=== PATIENT | female | born 1965 | race Caucasian/White ===

== ENCOUNTER 2022-02-27 23:27 | Emergency (ER) | payer SELFPAY ==
[2022-02-27 23:37] VITALS: BP 120/73; PULSE 74; RESP 18; TEMP 36.5; O2SAT 100; BMI 33.8
--- NOTE | 2022-02-27 23:50 | ED_ITS ---
HPI - General Adult General Time Seen by Provider: 23:50 Date Seen: 02/27/22 Chief complaint: Eye Problems Stated complaint: Rashes,swollen eyes Time Seen by Provider: 02/27/22 23:49 Source: patient Mode of arrival: ambulatory Limitations: no limitations History of Present Illness HPI narrative: Patient is a pleasant 56-year-old female who presents with her family. They declined an home health clinician. The son is interpreting. Had hives and a skin rash intermittently over the last few days. reports that it is most common when she is exposed to the cold air. The patient had the similar episode about 20 years ago and got better. She denies due to allergens, new detergents, new cosmetics. Does not take any medication and has not been on antibiotics. No tongue swelling or shortness of breath. No chest pain. No skin rashes other than mention, no abdominal pain Related Data Previous Rx's Medication Instructions Recorded prednisone 20 mg tablet 20 mg PO BID #10 tabs 02/27/22 Allergies Allergy/AdvReac Type Severity Reaction Status Date / Time No Known Drug Allergies Allergy Verified 02/27/22 23:35 Review of Systems Status of ROS: Reports: 6 or more systems reviewed and unremarkable except as noted in History and below PFSH [facility] Social History Smoking Status: Never smoker How often do you have a drink containing alcohol: never AUDIT-C Alcohol total score: 0 Non-prescribed substance use: denies use service: No Exam Narrative: Exam Narrative: Objective: Patient's O2 sat is excellent 100% on room air She has some mild upper and lower lid swelling on the left eye minimal on the right is a faint rash over her upper chest. Patient shows a picture of urticaria that was present earlier in the week. Mouth shows no swelling of the tongue or throat, she denies any breathing problem Const: Vital Signs, click to edit/add: Vital Signs - 24 hr 02/27/22 23:37 Temperature 97.7 F Pulse Rate [Right Pulse Oximeter] 74 Respiratory Rate 18 Blood Pressure [Ri ght Upper Arm] 120/73 Pulse Oximetry 100 Oxygen Delivery Me thod Room Air Course Vital Signs Vital signs: Initial Vital Signs Temperature 97.7 F 02/27/22 23:37 Temperature Source Oral 01/08/23 23:37 Pulse Rate 74 02/27/22 23:37 Respiratory Rate 18 02/27/22 23:37 Blood Pressure 120/73 02/27/22 23:37 Blood Pressure Mean 88 02/27/22 23:37 Blood Pressure Position Sitting 02/27/22 23:37 Pulse Oximetry 100 02/27/22 23:37 Oxygen Delivery Method 02/27/22 23:37 Vital Signs Temperature 97.7 F 02/27/22 23:37 Pulse Rate 74 02/27/22 23:37 Respiratory Rate 18 02/27/22 23:37 Blood Pressure 120/73 02/27/22 23:37 Pulse Oximetry 100 02/27/22 23:37 Oxygen Delivery Method 02/27/22 23:37 Temperature 97.7 F 02/27/22 23:37 Pulse Rate 74 02/27/22 23:37 Respiratory Rate 18 02/27/22 23:37 Blood Pressure 120/73 02/27/22 23:37 Pulse Oximetry 100 02/27/22 23:37 Oxygen Delivery Method 02/27/22 23:37 Medical Decision Making MDM Narrative Medical decision making narrative: Patient could certainly have cold induced urticaria. She has had no new allergens. At this point I think could be a sense to cover her with Benadryl 50 mg orally and prednisone 50 mg now. Will have them take Benadryl 25 mg t.i.d. over the next 3-5 days, and prednisone 20 b.i.d. x5 days. Follow up with primary care for worsening changes or not improving they can return to the ED. Discharge Plan Discharge Clinical Impression: Urticaria Patient Disposition: Home w/ Parent or Adult Condition: Stable Additional Instructions: Benadryl 25 mg 3 times a day for the next 3-5 days, prednisone 20 mg b.i.d. x5 days, follow-up with primary care within the next week to 10 days. Return to ED sooner problems or concerns. Activity Level: Light activity Discharge Diet: Regular Prescriptions: New prednisone 20 mg tablet 20 mg PO BID Qty: 10 0RF Follow Up/Referrals: Provider,Not a Local [Primary Care Provider] - Stand Alone Forms: [employer] Info Instructions
[2022-02-27] MEDS: diphenhydrAMINE 25 MG CAPSULE 50 MG PO (23:55)
[2022-02-27] MEDS: predniSONE 10 MG TABLET 50 MG PO (23:56)
== END 2022-02-28 00:08 | disposition home or self-care (01) ==
PROVIDERS: Emergency Provider Family Medicine
DX: L50.9 Urticaria, unspecified (principal)
CPT/HCPCS: 99283; A9270; J7512

== ENCOUNTER 2024-09-24 16:40 | Emergency (ER) | payer OTHER, SELFPAY ==
[2024-09-24 16:41] VITALS: BP 132/79; PULSE 77; RESP 16; TEMP 36; O2SAT 96; BMI 28.6
--- OUTSIDE RECORDS SUMMARY | 2024-09-24 16:42 | XMS_ITS | Clinical Summary ---
Author Organization [employer] [facility] Address [address] [place] [id number] Care Team Providers Care Lockstitch Binder Name Role Phone Cecilia Colbert PRODUCTION STAFF WORKER Primary Care Provider [phone] Allergies Active Allergy Reactions Criticality Noted Date Comments Latex Rash 09/18/2013 Gets rash on hands when uses gloves Medications ferrous gluconate 324 mg (37.5 mg iron) tab tabletIndication s:Abnormal uterine bleeding Take 1 tablet by mouth once daily with a meal. 30 tablet 2 12/27/2016 Active norethindrone-et h estradiol, 1-35 mg-mcg, (NORTREL 1/35, 28,) 1-35 mg-mcg tabletIndication s:Vaginal bleeding Take 1 tablet by mouth once daily. 28 tablet 5 01/04/2017 Active Active Problems Problem Noted Date Diagnosed Date Cholelithiasis 09/02/2013 Overview (09/02/2013): No symptoms with this. Umbilical hernia 09/02/2013 Immunizations Immunization Administration Dates Next Due Influenza, IIV4 01/17/2014 Tdap 09/16/2013 Social History Tobacco Use Types Packs/Day Years Used Date Smoking Tobacco: Never Smokeless Tobacco: Never Tobacco Cessation:Counseling Given: Yes Alcohol Use Standard Drinks/Week Comments No 0 (1 standard drink = 0.6 oz pur e alcohol) Comments No Sex and Gender Information Value Date Recorded Sex Assigned at Not on file Legal Sex Female 3:14 PM RADIO REPORTER Gender Identity Not on file Sexual Orientation Not on file Obstetrics History Last Filed Vital Signs Vital Sign Reading Time Taken Comments Blood Pressure 107/73 09/19/2018 9:38 AM CDT Pulse 71 09/19/2018 9:38 AM CDT Temperature 36.8 C (98.3 F) 09/19/2018 9:38 AM CDT Respiratory Rate 16 09/18/2013 12:26 PM CDT Oxygen Saturation 98% 09/19/2018 9:38 AM CDT Inhaled Oxygen Concentration - - Weight 64 kg (141 lb) 09/19/2018 9:38 AM CDT Height 147 cm (4' 9.87) 09/19/2018 9:38 AM CDT Body Mass Index 29.6 09/19/2018 9:38 AM CDT Plan of Treatment Health Maintenance Due Date Last Done Comments Depression screening for age 12+ 1978 HIV for age 15-65 1981 Hepatitis C screening for age 18-79 1984 Hepatitis B series for 19+ ( 1 of 3 - 19+ 3-dose series) 1985 Colonoscopy through age 75 12/10/2011 Lipids for age 45-75 12/10/2011 Pneumococcal series for age 50+ (1 of 1 - PCV) 2016 Zoster (shingles) series for age 50+ (1 of 2) 2016 BMI (ht and wt on same day) for age 18+ 09/20/2019 09/19/2018, 12/27/2016, 12/06/2016 Tetanus booster 09/17/2023 09/16/2013 COVID-19 vaccine series ( - season) 2023 Influenza Vaccine (#1) 2024 01/17/2014 Mammogram for age 45-75 12/04/2024 12/05/19 24, 05/31/2023, 04/07/2023 Pap test for age 21-65 03/15/2026 , 03/15/2023, 12/27/2016 Medical Devices Implanted Type Area Showcase Trimmer Device Identifier Shelf Expiration Date Model / Serial / Lot Mesh Ventral 2.5in Ventralex St W/Strap - [id number] Implanted:Qty: 1 on 09/18/2013 by Artis Dick MD at [facility] N/A: Abdomen DAVOL 07/21/2015 [id number] / / [id number] Procedures Procedure Name Priority Date/Time Associated Diagnosis Comments XR MAMMO KIERAN UNI DIAG RIGHT Routine 12/05/2023 9:53 AM CDT Category 3 mammography result with short follow-up interval suggested for probably benign finding HPV HIGH RISK Routine 03/15/2023 4:15 PM RADIO REPORTER from Last 3 Months or Most Recently Relevant to Health Maintenance Results * XR MAMMO KIERAN UNI DIAG RIGHT (12/05/2023 9:53 AM CDT) Anatomical Region Laterality Modality BREASTS, Breast Right Mammograph y, Other 12/05/2023 12:1 6 PM CDT Impressions 12/05/2023 2:38 PM CDT Persistent nodule mid outer RIGHT breast likely a lymph node. RIGHT BREAST ULTRASOUND: TECHNIQUE: Directed RIGHT breast ultrasound with this radiologist present. COMPARISON: 05/31/2023. FINDINGS: The RIGHT breast was carefully scanned between the 9 and 10 o'clock position from the nipple to the lateral RIGHT breast. There is a 2-3 mm cyst in the midlateral RIGHT breast 9 o'clock position 4 cm from the nipple seen previously and unchanged. A previously suggested lymph node in the upper outer or mid outer quadrant of the RIGHT breast on mammography cannot be visualized by ultrasound. However, no additional ultrasound findings are identified. These findings were discussed with the patient. Annual mammography is recommended beginning March 2024. BI-RADS Category 2: Benign Dictated by: Arnulfo Rodrigues MD @12/05/2023 12:16:08 PM/[place] PATIENTS: You will also receive a letter with your examination results in an easy to read format. If you have questions about your results, please contact your referring provider. Narrative 12/05/2023 2:38 PM CDT For Patients: As a result of the Century Cures Act, medical imaging exams and procedure reports are released immediately into your electronic medical record. You may view this report before your referring provider. If you have questions, please contact your health care provider. DIGITAL DIAGNOSTIC RIGHT MAMMOGRAM USING TOMOSYNTHESIS AND COMPUTER-AIDED DETECTION, 12/05/2023 RIGHT BREAST ULTRASOUND, 12/05/2023 INDICATION: 57-year-old asymptomatic female. Six-month follow-up of an asymmetric density in the lateral RIGHT breast possibly lymph node. Tiny RIGHT breast cyst seen previously. Follow up. TECHNIQUE: CC and MLO views were obtained of the RIGHT breast. Digital breast tomosynthesis utilized. Computer-aided detection utilized. COMPARISON: 05/31/2023. FINDINGS: The RIGHT breast is heterogeneously dense which may obscure small masses. There is a persistent small nodule in the midlateral RIGHT breast, likely a lymph node as was suggested previously. A follow-up 6 month ultrasound was ordered and will be performed subsequently. Few tiny punctate benign-appearing calcifications are identified on the RIGHT. No change in these calcifications. Cecilia Colbert PRODUCTION STAFF WORKER MAMMO Final Result * HPV HIGH RISK (03/15/2023 4:15 PM RADIO REPORTER) TYPE 16 Negative Negative 03/20/2023 11:03 AM RADIO REPORTER [facility] TYPE 18 Negative Negative 03/20/2023 11:03 AM RADIO REPORTER [facility] OTHER HIGH RISK TYPES Negative Negative 03/20/2023 11:03 AM RADIO REPORTER [facility] Other (Cervical) 03/15/2023 4:15 PM RADIO REPORTER 03/16/2023 1:19 PM RADIO REPORTER Narrative [facility] - 03/20/2023 11:03 AM RADIO REPORTER HPV types 16, 18, 31, 33, 35, 39, 45, 51, 52, 56, 58, 59, 66 and 68 DNA were undetectable or below the pre-set threshold. Methodology: Cony Kiersten 4800 HPV Test Cecilia Colbert PRODUCTION STAFF WORKER MICROBIOLOGY Final Result [facility] [address] [place] [address], from Last 3 Months or Most Recently Relevant to Health Maintenance Advance Directives * Full Code (Latest Code Status on File) Date Activated Date Inactivated Comments 09/18/2013 6:29 AM 09/18/2013 12:31 PM Care Teams Lockstitch Binder Relationship Specialty Start Date End Date Cecilia Colbert NP [address] [place] [address] GABRIEL TIWARI [id number] PCP - General Nurse Practitioner 12/05/23
--- NOTE | 2024-09-24 17:05 | CRLHL7_ITS ---
For Patients: As a result of the Cures Act, medical imaging exams and procedure reports are released immediately into your electronic medical record. You may view this report before your referring provider. If you have questions, please contact your health care provider. Indication: FELL, KNEE PAIN Technique: Three views of the right knee. Comparison: None. Findings: Mild degenerative changes of the knee. No acute displaced fracture or malalignment is seen. No significant knee joint effusion. Impression: Mild degenerative changes of the knee. No acute displaced fracture or malalignment is seen. Dictated by Sanchez Avilez MD @ 09/24/2024 5:43:19 PM (Electronically Signed)
--- NOTE | 2024-09-24 18:13 | ED_ITS ---
[facility] - General Adult General Date Seen: 09/24/24 Chief complaint: Extremity Pain/Injury, Lower Stated complaint: fell, injured knee Time Seen by Provider: 09/24/24 16:44 Source: patient Mode of arrival: wheelchair Limitations: no limitations History of Present Illness HPI narrative: Patient is a 58-year-old female presenting for right knee pain. She states shortly prior to arrival she was walking on uneven sidewalk when she tripped and fell landing on her knees. She states her right knee is painful and she has been having difficulty walking on it. States the left knee has very minimal pain and she is able blood pressure and that knee. Denies injuring anything else. No other concerns noted. Denies any numbness to that leg. Related Data Home Medications ?Medication ?Instructions ?Recorded ?Confirmed metformin 500 mg tablet,extended 2,000 mg PO QAM 09/2409/24/24 release 24 hr Allergies Allergy/AdvReac Type Severity Reaction Status Date / Time No Known Drug Allergies Allergy Verified 02/27/22 23:35 Review of Systems Narrative: Pertinent systems reviewed and were negative unless stated in HPI PFSH PFSH Social History Smoking Status: Never smoker How often do you have a drink containing alcohol: never AUDIT-C Alcohol total score: 0 Non-prescribed substance use: denies use service: No Exam Narrative: Exam Narrative: Const: Well-nourished, Well-developed, in mild distress Eyes: PERRL, no conjunctival injection, and symmetrical lids HENT: Atraumatic external nose and ears. Moist mucous membranes. MSK:Extremities w/o deformity, mild tenderness to the right knee circumferential. Small 1 cm size abrasions on bilateral knees just over the patella Skin: Warm, Dry. No rashes or lesions. Neuro: Normal Muscle tone, No focal neurological deficits. Psych: Awake, Alert, & Oriented x3. Appropriate mood and affect. Const: Vital Signs, click to edit/add: Vital Signs - 24 hr 09/24/24 16:41 Temperature 96.8 F L Pulse Rate [Pulse Oximeter] 77 Respiratory Rate 16 Blood Pressure [Le ft Upper Arm] 132/79 Pulse Oximetry 96 Oxygen Delivery Me thod Room Air Course Vital Signs Vital signs: Initial Vital Signs Temperature 96.8 F L 09/24/24 16:41 Temperature Source Temporal Artery Scan 09/24/24 16:41 Pulse Rate 77 09/24/24 16:41 Respiratory Rate 16 09/24/24 16:41 Blood Pressure 132/79 09/24/24 16:41 Blood Pressure Mean 96 09/24/24 16:41 Pulse Oximetry 96 09/24/24 16:41 Oxygen Delivery Method Room Air 09/24/24 16:41 Vital Signs Temperature 96.8 F L 09/24/24 16:41 Pulse Rate 77 09/24/24 16:41 Respiratory Rate 16 09/24/24 16:41 Blood Pressure 132/79 09/24/24 16:41 Pulse Oximetry 96 09/24/24 16:41 Oxygen Delivery Method Room Air 09/24/24 16:41 Temperature 96.8 F L 09/24/24 16:41 Pulse Rate 77 09/24/24 16:41 Respiratory Rate 16 09/24/24 16:41 Blood Pressure 132/79 09/24/24 16:41 Pulse Oximetry 96 09/24/24 16:41 Oxygen Delivery Method Room Air 09/24/24 16:41 Medical Decision Making MDM Narrative Medical decision making narrative: Patient is a 58-year-old female presenting for right knee pain. Will do an x- ray to look for signs of fracture. X-ray returned showing no acute abnormalities. She is able to fully extend and it able to flex the knee. I do not believe there is any big tendon injuries. She could have some underlying soft tissue injuries but is hard to get a thorough exam as she is painful when I was trying the Vicky's test. I do believe she is safe for discharge I informed them to follow up with Orthopedics if pain persists into the end of this week or next week they are agreeable to this plan Imaging Data Right knee x-ray: Radiologist's impression: Mild degenerative changes of the knee. No acute displaced fracture or malalignment is seen. Dictated by Sanchez Avilez MD @ 09/24/2024 5:43:19 PM Discharge Plan Discharge Clinical Impression: Knee pain Qualifiers: Chronicity: acute Laterality: right Qualified Code(s): M25.561 - Pain in right knee Patient Disposition: Home, Self-Care Condition: Stable Instructions: Knee Pain (ED) Additional Instructions: There is no acute fracture seen on your x-ray but I cannot definitively rule out any soft tissue injury such as ligament or meniscus injuries. I recommend taking [id number] pain medication and ice the area 3 times a day for 20 minutes. If he continued to have pain to the end of this week and into next week I recommend Follow-up with [facility]. Call them at . Prescriptions: No Action metformin 500 mg tablet extended release 24 hr 2,000 mg PO QAM Follow Up/Referrals: Provider,Not a Local [Primary Care Provider, Family Practice] Stand Alone Forms: [employer], [employer] Info Instructions
== END 2024-09-24 18:31 | disposition home or self-care (01) ==
PROVIDERS: Emergency Provider Student in an Organized Health Care Education/Training Program
DX: M25.561 Pain in right knee (principal); W01.0XXA Fall on same level from slipping, tripping and stumbling without subsequent striking against object, initial encounter
CPT/HCPCS: 73562; 99283